=== PATIENT | male | born 1995 | race Caucasian/White ===

== ENCOUNTER 2019-10-09 17:23 | Inpatient (IN) | payer OTHER ==
--- NOTE | 2019-10-09 19:29 | HP ---
COWS - Scale Resting Pulse: 2= [place] 101-120 Sweatin= Chills/Flushing Restless Observation: 0= Sits Still Pupil Size: 0= Normal to Room Light Bone or Joint Aches: 1= Mild Discomfort Runny Nose/ Eye Tearin= Runny Nose/Eyes GI Upset > 30mins: 2= Nausea/Diarrhea Tremor Observation: 2= Slight Tremor Visible Yawning Observation: 0= None Anxiety or Irritability: 1=Feels Anxious/Irritable Goose Flesh Skin: 0=Smooth Skin COWS Score: 11 CIWA Score - Admission Criteria [facility] Guidelines: Admission for Medically Managed Detox: Requires at least one of the followin. CIWA greater than 12 2. Seizures within the past 24 hours 3. Delirium tremens within the past 24 hours 4. Hallucinations within the past 24 hours 5. Acute intervention needed for co occurring medical disorder 6. Acute intervention needed for co occurring psychiatric disorder 7. Severe withdrawal that cannot be handled at a lower level of care (continued vomiting, continued diarrhea, abnormal vital signs) requiring intravenous medication and/or fluids 8. Admission [facility] Chief Complaint: detox from heroin Allergies/Adverse Reactions: Allergies Allergy/AdvReac Type Severity Reaction Status Date / Time No Known Allergies Allergy Verified 10/09/19 19:34 History of Present Illness: Patient is a 24 y/o male with no past medical history who is here for detox from heroin. he was at [facility] for detox for a few hours but decided to come here for detox. Started using heroin at age 18. Has been consistently using since then. Patient uses every day and only sniffs it. Patient uses 3-8 bags a day. Patient has never overdosed. Last used two days ago. Patient used crack two days ago. Typically uses it everyday with heroin. Typically uses 1-8 bags. Patient smokes it. Patient denies other drug use and denies alcohol use. Patient denies smoking cigarettes. Patient has been to rehab before, but was unsuccessful with sobriety. Sghx: denies allergies: denies Social hx: homeless, does not have a job and uses unemployment Patient meets inpatient criteria for detox from heroin, patient has poor social placement and is a high risk for relapse - Review of Systems Constitutional: Chills EENT: denies: Blurred Vision, Tinnitus Respiratory: denies: Cough, Shortness of Breath, Wheezing Cardiac: denies: Chest Pain GI: reports: Nausea, Vomiting : denies: Dysuria Neuro: reports: Headache, Tremors. denies: Numbness Endocrine: denies: Unexplained Weight Gain Hematology: denies: Anemia Psychiatric: reports: Anxious Patient History - Patient Medical History Hx Anemia: No Hx Asthma: No Hx Chronic Obstructive Pulmonary Disease (COPD): No Hx Cancer: No Hx Cardiac Disorders: No Hx Congestive Heart Failure: No Hx Hypertension: No Hx Hypercholesterolemia: No Hx Pacemaker: No HX Cerebrovascular Accident: No Hx Seizures: No Hx Dementia: No Hx Diabetes: No Hx Gastrointestinal Disorders: No Hx Liver Disease: No Hx Genitourinary Disorders: No Hx Sexually Transmitted Disorders: No Hx Renal Disease (ESRD): No Hx Thyroid Disease: No Hx Human Immunodeficiency Virus (HIV): No Hx Hepatitis C: No Hx Depression: No Hx Suicide Attempt: No Hx Bipolar Disorder: No Hx Schizophrenia: No - Patient Surgical History Past Surgical History: No Hx Neurologic Surgery: No Hx Cataract Extraction: No Hx Cardiac Surgery: No Hx Lung Surgery: No Hx Breast Surgery: No Hx Breast Biopsy: No Hx Abdominal Surgery: No Hx Appendectomy: No Hx Cholecystectomy: No Hx Genitourinary Surgery: No Hx Section: No Hx Orthopedic Surgery: No Hx Hysterectomy: No Anesthesia Reaction: No - PPD History Previous Implant?: No - Smoking Cessation Smoking history: Never smoked - Substance & Tx. History Hx Alcohol Use: No Substance Use Type: Heroin Admission Physical Exam [facility] - Physical General Appearance: Yes: Within Normal Limits, No Apparent Distress HEENTM: Yes: Hearing grossly Normal Respiratory: Yes: Normal Breath Sounds, No Respiratory Distress, No Accessory Muscle Use Cardiology: Yes: Regular Rhythm, Regular Rate Abdominal: Yes: Normal Bowel Sounds, Non Tender, Flat Back: Yes: Within Normal Limits, Normal Inspection Musculoskeletal: Yes: full range of Motion, Gait Steady Extremities: Yes: Normal Range of Motion. No: Pedal Edema Neurological: Yes: Alert, Normal Response Integumentary: Yes: Normal Color, Dry - Diagnostic (1) Opioid dependence with withdrawal Current Visit: Yes Status: Acute Cleared for Admission S - Detox or Rehab [facility] Level of Care: Medically Managed Detox Regimen/Protocol: Methadone Breathalyzer - Breathalyzer Breathalyzer: 0 Vital Signs - Vital Signs Vital signs refused: No Temperature: 98.8 F Temperature source: Oral Pulse Rate: 117 Respiratory Rate: 20 Blood Pressure: 141/88 BP Location: Left Arm - Height Height: 5 ft 10 in - Weight Weight: 68.946 kg - BMI Body Mass Index (BMI): 21.8 Urine Drug Screen - Test Device Lot number: [id number] Expiration date: 01/05/20 - Control Is test valid?: Yes - Results Drug screen NEGATIVE: No Urine drug screen results: MTD-Methadone, BUP-Suboxone Inpatient Rehab Admission - Rehab Decision to Admit Inpatient rehab admission?: No
[2019-10-09 19:34] VITALS: BMI 21.8
[2019-10-09] MEDS ORDERED: MAGNESIUM CITRATE 300 ML BOTTLE PO PRN (19:34)
[2019-10-09] MEDS ORDERED: MAGNESIUM HYDROX 2400MG/30ML ORAL SUSPENSION 30 ML CUP PO PRN (19:34)
[2019-10-09] MEDS ORDERED: cloNIDine HCL 0.1 MG TABLET PO PRN (19:34)
[2019-10-09] MEDS ORDERED: IBUPROFEN 400 MG TABLET (FP) PO PRN (19:34)
[2019-10-09] MEDS ORDERED: ONDANSETRON *ODT* 4 MG TABLET SL PRN (19:34)
[2019-10-09] MEDS ORDERED: MENTHOL/PHENOL 1 EACH UD MM PRN (19:34)
[2019-10-09] MEDS ORDERED: ACETAMINOPHEN 325 MG TABLET (FP) PO PRN ×2 (19:34)
[2019-10-09] MEDS ORDERED: MAG HYDROX/AL HYDROX/SIMETH 30 ML UNIT-DOSE CUP PO PRN (19:34)
[2019-10-09] MEDS ORDERED: BISMUTH SUBSALICYLATE 524 MG/30 ML UD PO PRN (19:34)
--- NOTE | 2019-10-09 19:50 | PN ---
Teaching Attending Note Name of Resident: Patria Hartman ATTENDING PHYSICIAN STATEMENT I saw and evaluated the patient. I reviewed the resident's note and discussed the case with the resident. I agree with the resident's findings and plan as documented. SUBJECTIVE: 24 yo with long h/o of OUD here for opioid detox. Went to [facility] ER and sent here for detox no medical problems OBJECTIVE: Vital Signs - 24 hr 10/09/19 19:34 Temperature 98.8 F Pulse Rate 117 H Respiratory 20 Rate Blood Pressure 141/88 ASSESSMENT AND PLAN: OUD- start methadone detox protocol- valium prn
[2019-10-09] MEDS ORDERED: METHADONE HCL 10 MG TABLET (FOR DETOX USE ONLY) PO ONE (20:00)
[2019-10-09] MEDS: PRENATAL VITAMINS W/ FOLIC ACID TABLET (FP) PO SCH (22:05)
[2019-10-09] MEDS: hydrOXYzine PAMOATE 25 MG CAPSULE (FP) PO SCH (22:05)
[2019-10-09] MEDS: diazePAM 5 MG TABLET PO PRN (22:05)
[2019-10-09] MEDS: MELATONIN 5 MG TABLETS PO SCH (22:05)
[2019-10-09] MEDS: THIAMINE HCL 100 MG TABLET (FP) PO SCH (22:05)
[2019-10-10] MEDS: hydrOXYzine PAMOATE 25 MG CAPSULE (FP) PO SCH ×5 (07:57→22:44)
[2019-10-10] MEDS ORDERED: METHADONE HCL 10 MG TABLET (FOR DETOX USE ONLY) ONE (08:56)
[2019-10-10] MEDS ORDERED: METHADONE HCL 5 MG TABLET (FOR DETOX USE ONLY) ONE (08:56)
[2019-10-10] MEDS ORDERED: METHADONE (DETOX) 20 MG, METHADONE (DETOX) 5 MG PO ONE (10:00)
--- NOTE | 2019-10-10 10:56 | EKG ---
Test Reason : Blood Pressure : / mmHG Vent. Rate : 108 BPM Atrial Rate : 108 BPM P-R Int : 140 ms QRS Dur : 084 ms QT Int : 338 ms P-R-T Axes : 064 078 057 degrees QTc Int : 452 ms POOR DATA QUALITY, INTERPRETATION MAY BE ADVERSELY AFFECTED SINUS TACHYCARDIA NO PREVIOUS ECGS AVAILABLE Confirmed by DEAN BELLO MD ([id number]) on 10/10/2019 10:56:12 AM Referred By: MEJIA ELENA Confirmed By:DEAN BELLO MD
[2019-10-10] MEDS: PRENATAL VITAMINS W/ FOLIC ACID TABLET (FP) PO SCH (11:23)
[2019-10-10 15:46] LABS: HEMATOCRIT 42.2 % (35.4-49); MCH 27.5 pg (25.7-33.7); MCHC 33.1 g/dl (32.0-35.9); MEAN CELL VOLUME 83.1 fl (80-96); MEAN PLT VOLUME 8.3 fl (7.5-11.1); PLATELET COUNT 392 K/MM3 (134-434); RBC 5.08 M/mm3 (4.00-5.60); RDW 12.6 % (11.9-15.9); WHITE BLOOD COUNT 8.8 K/mm3 (4.0-10.0)
--- NOTE | 2019-10-10 16:25 | PN ---
S COWS - Scale Resting Pulse: 1= [place] 81-100 Sweatin= Chills/Flushing Restless Observation: 1= Difficult to Sit Still Pupil Size: 1= Pupils >than Normal Bone or Joint Aches: 2= Severe Diffuse Aches Runny Nose/ Eye Tearin= Runny Nose/Eyes GI Upset > 30mins: 2= Nausea/Diarrhea Tremor Observation of Outstretched Hands: 2= Slight Tremor Visible Yawning Observation: 2= >3x During Session Anxiety or Irritability: 2=Irritable/Anxious Goose Flesh Skin: 0=Smooth Skin COWS Score: 16 S Progress Note (SOAP) Subjective: alert,irritable,anxious,interrupted sleep,tremor,pain in the body and back,nausea,diarrhea,aching pain Objective: 10/10/19 16:23 Vital Signs Temperature 97.7 F 10/10/19 12:49 Pulse Rate 93 H 10/10/19 12:49 Respiratory Rate 16 10/10/19 12:49 Blood Pressure 121/79 10/10/19 12:49 O2 Sat by Pulse Oximetry (%) 97 10/10/19 12:49 10/10/19 16:23 Laboratory Last Values WBC 8.8 K/mm3 (4.0-10.0) 10/10/19 11:20 RBC 5.08 M/mm3 (4.00-5.60) 10/10/19 11:20 Hgb 14.0 GM/dL (11.7-16.9) 10/10/19 11:20 Hct 42.2 % (35.4-49) 10/10/19 11:20 MCV 83.1 fl (80-96) 10/10/19 11:20 MCH 27.5 pg (25.7-33.7) 10/10/19 11:20 MCHC 33.1 g/dl (32.0-35.9) 10/10/19 11:20 RDW 12.6 % (11.9-15.9) 10/10/19 11:20 Plt Count 392 K/MM3 (134-434) 10/10/19 11:20 MPV 8.3 fl (7.5-11.1) 10/10/19 11:20 10/10/19 16:24 labs pending Assessment: 09/04/20 16:24 withdrawal symptom Plan: continue detox methadone regimen,valium 10 mgs po q 4 hrs prn for severe withdrawal for 72 hrs
[2019-10-10 18:19] LABS: ALBUMIN 3.6 g/dl (3.4-5.0); BILIRUBIN,TOTAL 0.5 mg/dL (0.2-1); BLOOD UREA NITROGEN 15.3 mg/dL (7-18); CALCIUM 9.4 mg/dL (8.5-10.1); CREATININE 0.9 mg/dL (0.55-1.3); POTASSIUM 3.8 mmol/L (3.5-5.1); TOT PROT 7.1 g/dl (6.4-8.2)
[2019-10-10] MEDS: THIAMINE HCL 100 MG TABLET (FP) PO SCH (22:44)
[2019-10-10] MEDS: MELATONIN 5 MG TABLETS PO SCH (22:44)
[2019-10-11] MEDS: hydrOXYzine PAMOATE 25 MG CAPSULE (FP) PO SCH ×5 (07:13→22:51)
[2019-10-11] MEDS ORDERED: METHADONE HCL 10 MG TABLET (FOR DETOX USE ONLY) PO ONE (10:00)
[2019-10-11] MEDS: PRENATAL VITAMINS W/ FOLIC ACID TABLET (FP) PO SCH (10:19)
--- NOTE | 2019-10-11 12:05 | PN ---
BHS COWS - Scale Resting Pulse: 0= [place] 80 or Below Sweatin= Chills/Flushing Restless Observation: 1= Difficult to Sit Still Pupil Size: 0= Normal to Room Light Bone or Joint Aches: 2= Severe Diffuse Aches Runny Nose/ Eye Tearin= None GI Upset > 30mins: 0= None Tremor Observation of Outstretched Hands: 0= None Yawning Observation: 2= >3x During Session Anxiety or Irritability: 2=Irritable/Anxious Goose Flesh Skin: 0=Smooth Skin COWS Score: 8 BHS Progress Note (SOAP) Subjective: c/o chills, muscle aches, anxiety, and irritability. Objective: 10/11/19 12:04 Vital Signs 10/11/19 10/11/19 06:22 08:57 Temperature 97.7 F 98.2 F Pulse Rate 65 85 Respiratory 18 18 Rate Blood Pressure 108/68 107/61 O2 Sat by Pulse 97 Oximetry (%) Laboratory Last Values WBC 8.8 K/mm3 (4.0-10.0) 10/10/19 11:20 RBC 5.08 M/mm3 (4.00-5.60) 10/10/19 11:20 Hgb 14.0 GM/dL (11.7-16.9) 10/10/19 11:20 Hct 42.2 % (35.4-49) 10/10/19 11:20 MCV 83.1 fl (80-96) 10/10/19 11:20 MCH 27.5 pg (25.7-33.7) 10/10/19 11:20 MCHC 33.1 g/dl (32.0-35.9) 10/10/19 11:20 RDW 12.6 % (11.9-15.9) 10/10/19 11:20 Plt Count 392 K/MM3 (134-434) 10/10/19 11:20 MPV 8.3 fl (7.5-11.1) 10/10/19 11:20 Sodium 139 mmol/L (136-145) 10/10/19 11:20 Potassium 3.8 mmol/L (3.5-5.1) 10/10/19 11:20 Chloride 105 mmol/L (98-107) 10/10/19 11:20 Carbon Dioxide 24 mmol/L (21-32) 10/10/19 11:20 Anion Gap 10 MMOL/L (8-16) 10/10/19 11:20 BUN 15.3 mg/dL (7-18) 10/10/19 11:20 Creatinine 0.9 mg/dL (0.55-1.3) 10/10/19 11:20 Est GFR (CKD-EPI)AfAm 136.14 10/10/19 11:20 Est GFR (CKD-EPI)NonAf 117.46 10/10/19 11:20 Random Glucose 111 mg/dL (74-106) H 10/10/19 11:20 Calcium 9.4 mg/dL (8.5-10.1) 10/10/19 11:20 Total Bilirubin 0.5 mg/dL (0.2-1) 10/10/19 11:20 AST 10 U/L (15-37) L 10/10/19 11:20 ALT 13 U/L (13-61) 10/10/19 11:20 Alkaline Phosphatase 133 U/L (45-117) H 10/10/19 11:20 Total Protein 7.1 g/dl (6.4-8.2) 10/10/19 11:20 Albumin 3.6 g/dl (3.4-5.0) 10/10/19 11:20 Syphilis Serology Non-reactive (NONREACTIVE) 10/10/19 11:20 Labs noted. Assessment: 10/11/19 12:05 AOX3, in no acute respiratory distress. Full ROM, ambulating in the unit. Withdrawal symptoms. Plan: continue detox.
[2019-10-11] MEDS: MELATONIN 5 MG TABLETS PO SCH (22:51)
[2019-10-11] MEDS: THIAMINE HCL 100 MG TABLET (FP) PO SCH (22:51)
[2019-10-12] MEDS: diazePAM 5 MG TABLET PO PRN (05:14)
[2019-10-12] MEDS: hydrOXYzine PAMOATE 25 MG CAPSULE (FP) PO SCH ×6 (07:41→23:04)
[2019-10-12] MEDS ORDERED: METHADONE HCL 10 MG TABLET (FOR DETOX USE ONLY) ONE (08:49)
[2019-10-12] MEDS ORDERED: METHADONE HCL 5 MG TABLET (FOR DETOX USE ONLY) ONE (08:49)
--- NOTE | 2019-10-12 09:16 | PN ---
BHS COWS - Scale Resting Pulse: 0= [place] 80 or Below Sweatin= Chills/Flushing Restless Observation: 0= Sits Still Pupil Size: 1= Pupils >than Normal Bone or Joint Aches: 1= Mild Discomfort Runny Nose/ Eye Tearin= None GI Upset > 30mins: 1= Stomach Cramp Tremor Observation of Outstretched Hands: 2= Slight Tremor Visible Yawning Observation: 0= None Anxiety or Irritability: 1=Feels Anxious/Irritable Goose Flesh Skin: 0=Smooth Skin COWS Score: 7 BHS Progress Note (SOAP) Subjective: 24 years old male was admitted on 10/09/19 for opiate withdrawal sx management treating with methadone detox regiment ate breakfast in room tolerated well resting in bed bmi 21.8 ensure 120 ml po tid with meals encourage mr leach picking up narcan from pharmacy upon discharge from detox unit Objective: 10/12/19 09:19 Vital Signs - 24 hr 10/11/19 10/11/19 10/11/19 13:02 16:42 21:13 Temperature 98.2 F 97.3 F L 97.7 F Pulse Rate 67 82 83 Respiratory 18 18 16 Rate Blood Pressure 105/60 99/59 L 122/70 O2 Sat by Pulse 100 100 99 Oximetry (%) 10/12/19 06:11 Temperature 99 F Pulse Rate 75 Respiratory 18 Rate Blood Pressure 105/71 O2 Sat by Pulse 99 Oximetry (%) Laboratory Tests 10/09/19 10/10/19 10/10/19 21:10 11:20 11:20 WBC 8.8 RBC 5.08 Hgb 14.0 Hct 42.2 MCV 83.1 MCH 27.5 MCHC 33.1 RDW 12.6 Plt Count 392 MPV 8.3 Sodium 139 Potassium 3.8 Chloride 105 Carbon Dioxide 24 Anion Gap 10 BUN 15.3 Creatinine 0.9 Est GFR (CKD-EPI)AfAm 136.14 Est GFR (CKD-EPI)NonAf 117.46 Random Glucose 111 H Calcium 9.4 Total Bilirubin 0.5 AST 10 L ALT 13 Alkaline Phosphatase 133 H Total Protein 7.1 Albumin 3.6 Syphilis Serology COVID-19 (SHIRLEY) Not detected 10/10/19 11:20 WBC RBC Hgb Hct MCV MCH MCHC RDW Plt Count MPV Sodium Potassium Chloride Carbon Dioxide Anion Gap BUN Creatinine Est GFR (CKD-EPI)AfAm Est GFR (CKD-EPI)NonAf Random Glucose Calcium Total Bilirubin AST ALT Alkaline Phosphatase Total Protein Albumin Syphilis Serology Non-reactive COVID-19 (SHIRLEY) lab noted Assessment: 10/12/19 09:19 opiate withdrawal Plan: methadone regiment
[2019-10-12] MEDS ORDERED: METHADONE (DETOX) 10 MG, METHADONE (DETOX) 5 MG PO ONE (10:00)
[2019-10-12] MEDS: PRENATAL VITAMINS W/ FOLIC ACID TABLET (FP) PO SCH (10:33)
[2019-10-12] MEDS: THIAMINE HCL 100 MG TABLET (FP) PO SCH (22:40)
[2019-10-12] MEDS: MELATONIN 5 MG TABLETS PO SCH ×2 (22:40→23:04)
[2019-10-12] MEDS: METHOCARBAMOL 500 MG TABLET PO PRN (23:04)
[2019-10-13] MEDS: hydrOXYzine PAMOATE 25 MG CAPSULE (FP) PO SCH ×5 (06:47→22:18)
[2019-10-13] MEDS ORDERED: METHADONE HCL 10 MG TABLET (FOR DETOX USE ONLY) PO ONE (10:00)
[2019-10-13] MEDS: PRENATAL VITAMINS W/ FOLIC ACID TABLET (FP) PO SCH (10:19)
--- NOTE | 2019-10-13 14:26 | PN ---
BHS COWS - Scale Resting Pulse: 0= [place] 80 or Below Sweatin= No chills or Flushing Restless Observation: 0= Sits Still Pupil Size: 0= Normal to Room Light Bone or Joint Aches: 1= Mild Discomfort Runny Nose/ Eye Tearin= Nasal Congestion GI Upset > 30mins: 1= Stomach Cramp Tremor Observation of Outstretched Hands: 1= Tremor [place], Not Seen Yawning Observation: 0= None Anxiety or Irritability: 1=Feels Anxious/Irritable Goose Flesh Skin: 0=Smooth Skin COWS Score: 5 BHS Progress Note (SOAP) Subjective: alert,irritable,anxious,interrupted sleep,pain i the body Objective: 10/13/19 14:25 Vital Signs Temperature 96.9 F L 10/13/19 12:56 Pulse Rate 73 10/13/19 12:56 Respiratory Rate 18 10/13/19 12:56 Blood Pressure 95/53 L 10/13/19 12:56 O2 Sat by Pulse Oximetry (%) 98 10/13/19 12:56 Assessment: 10/13/19 14:25 withdrawal symptom Plan: continue detox methadone regimen
[2019-10-13] MEDS: THIAMINE HCL 100 MG TABLET (FP) PO SCH (22:18)
[2019-10-13] MEDS: MELATONIN 5 MG TABLETS PO SCH (22:18)
[2019-10-13] MEDS: METHOCARBAMOL 500 MG TABLET PO PRN (22:19)
[2019-10-14] MEDS ORDERED: METHADONE HCL 5 MG TABLET (FOR DETOX USE ONLY) PO ONE (06:00)
[2019-10-14 06:28] VITALS: BP 97/57; PULSE 71; TEMP 96.9
[2019-10-14] MEDS: hydrOXYzine PAMOATE 25 MG CAPSULE (FP) PO SCH (07:00)
--- NOTE | 2019-10-14 09:19 | DS ---
[facility] Detox Discharge Summary Admission Date: 10/09/19 Discharge Date: 10/14/19 - History Present History: Opioid Dependence Additional Comments: alert,oriented x 3 ambulation on the unit lung clear on auscultation bilaterally abdomen soft,no pain,no tenderness no swelling of legs detox completed,no withdrawal symptom stable for discharge follow up with after care program [facility] out Patient as arrangement total time spending on discharge 35 minutes - Physical Exam Results Vital Signs: Vital Signs Temperature 96.9 F L 10/14/19 05:10 Pulse Rate 71 10/14/19 05:10 Respiratory Rate 16 10/14/19 05:10 Blood Pressure 97/57 L 10/14/19 05:10 O2 Sat by Pulse Oximetry (%) 99 10/14/19 05:10 Pertinent Admission Physical Exam Findings: withdrawal signs and symptom Vital Signs Temperature 96.9 F L 10/14/19 05:10 Pulse Rate 71 10/14/19 05:10 Respiratory Rate 16 10/14/19 05:10 Blood Pressure 97/57 L 10/14/19 05:10 O2 Sat by Pulse Oximetry (%) 99 10/14/19 05:10 Laboratory Last Values WBC 8.8 K/mm3 (4.0-10.0) 10/10/19 11:20 RBC 5.08 M/mm3 (4.00-5.60) 10/10/19 11:20 Hgb 14.0 GM/dL (11.7-16.9) 10/10/19 11:20 Hct 42.2 % (35.4-49) 10/10/19 11:20 MCV 83.1 fl (80-96) 10/10/19 11:20 MCH 27.5 pg (25.7-33.7) 10/10/19 11:20 MCHC 33.1 g/dl (32.0-35.9) 10/10/19 11:20 RDW 12.6 % (11.9-15.9) 10/10/19 11:20 Plt Count 392 K/MM3 (134-434) 10/10/19 11:20 MPV 8.3 fl (7.5-11.1) 10/10/19 11:20 Sodium 139 mmol/L (136-145) 10/10/19 11:20 Potassium 3.8 mmol/L (3.5-5.1) 10/10/19 11:20 Chloride 105 mmol/L (98-107) 10/10/19 11:20 Carbon Dioxide 24 mmol/L (21-32) 10/10/19 11:20 Anion Gap 10 MMOL/L (8-16) 10/10/19 11:20 BUN 15.3 mg/dL (7-18) 10/10/19 11:20 Creatinine 0.9 mg/dL (0.55-1.3) 10/10/19 11:20 Est GFR (CKD-EPI)AfAm 136.14 10/10/19 11:20 Est GFR (CKD-EPI)NonAf 117.46 10/10/19 11:20 Random Glucose 111 mg/dL (74-106) H 10/10/19 11:20 Calcium 9.4 mg/dL (8.5-10.1) 10/10/19 11:20 Total Bilirubin 0.5 mg/dL (0.2-1) 10/10/19 11:20 AST 10 U/L (15-37) L 10/10/19 11:20 ALT 13 U/L (13-61) 10/10/19 11:20 Alkaline Phosphatase 133 U/L (45-117) H 10/10/19 11:20 Total Protein 7.1 g/dl (6.4-8.2) 10/10/19 11:20 Albumin 3.6 g/dl (3.4-5.0) 10/10/19 11:20 Syphilis Serology Non-reactive (NONREACTIVE) 10/10/19 11:20 COVID-19 (SHIRLEY) Not detected (Not Detected) 10/09/19 21:10 - Treatment Hospital Course: Detox Protocol Followed, Detoxed Safely, Responded well, Discharged Condition Good Patient has Accepted a Rehab Referral to: declined - Medication Discharge Medications: Ambulatory Orders Naloxone HCl [Narcan] 4 mg NS ASDIR PRN #1 spray 10/12/19 - Diagnosis (1) Opioid dependence with withdrawal Current Visit: Yes Status: Acute - AMA Did Patient Leave Against Medical Advice: No
--- NOTE | 2019-10-14 09:19 | PN ---
[facility] CIWA - CIWA Score Nausea/Vomitin-No Nausea/No Vomiting Muscle Tremors: None Anxiety: 1-Mildly Anxious Agitation: 0-Normal Activity Paroxysmal Sweats: No Perspiration Orientation: 0-Oriented Tacttile Disturbances: 0-None Auditory Disturbances: 0-None Visual Disturbances: 0-None Headache: 0-None Present CIWA-Ar Total Score: 1 S Progress Note (SOAP) Subjective: alert,no complaint Objective: 10/14/19 09:18 Vital Signs Temperature 96.9 F L 10/14/19 05:10 Pulse Rate 71 10/14/19 05:10 Respiratory Rate 16 10/14/19 05:10 Blood Pressure 97/57 L 10/14/19 05:10 O2 Sat by Pulse Oximetry (%) 99 10/14/19 05:10 Assessment: 10/14/19 09:18 no withdrawal symptom Plan: stable for discharge today,follow up with after care program as arrangement
== END 2019-10-14 09:23 | disposition home or self-care (01) | DRG 773 ==
LOC: YASAS 17:23 → Y3N 19:36
PROVIDERS: ADMIT Allergy & Immunology; ATTEND Allergy & Immunology
PROC: HZ2ZZZZ Detoxification Services for Substance Abuse Treatment (ICD-10-PCS; principal; 2019-10-09)
DX: F11.23 Opioid dependence with withdrawal (principal); F14.20 Cocaine dependence, uncomplicated; Z56.0 Unemployment, unspecified; Z59.0 Homelessness
CPT/HCPCS: 36415; 80053; 85027; 86780; 93005; 93010; J0735; U0003